=== PATIENT | female | born 1945 | race Asian ===

== ENCOUNTER → 2023-02-23 | Outpatient (CLI) | payer MEDICARE, OTHER | END | disposition home or self-care (01) | LOC: RADPV 14:00 | PROVIDERS: ATTEND Student in an Organized Health Care Education/Training Program | DX: M81.8 Other osteoporosis without current pathological fracture (principal); M85.852 Other specified disorders of bone density and structure, left thigh; Z85.3 Personal history of malignant neoplasm of breast | CPT/HCPCS: 77080 ==